=== PATIENT | female | born 1965 | race African-American/Black ===

== ENCOUNTER → 2023-08-30 11:29 | Outpatient (REF) | payer BC, SELFPAY ==
[2023-08-30 13:18] LABS: % Basophils 0.7 % (0-2); % Eosinophils 2.1 % (0-6); % Immature Granulocytes 0.2 % (0-0.5); % Lymphocytes 36.1 % (20.5-51.1); % Neutrophils 52.9 % (42.2-75.2); Absolute Eosinophils 0.1 10^3/uL (0-0.7); Absolute Lymphocytes 1.6 10^3/uL (1.2-3.4); Absolute Monocytes 0.4 10^3/uL (0.1-0.6); Absolute Neutrophils 2.3 10^3/uL (1.4-6.5); Hematocrit 39.3 % (37.0-47.0); Hemoglobin 12.8 g/dL (12.0-16.0); Mean Corp Hgb Conc. 32.6 g/dL (33.0-37.0); Mean Corpuscular Hgb 29.4 pg (27.0-31.0); Mean Corpuscular Volume 90.1 fL (81.0-99.0); Mean Platelet Volume 10.6 fL (7.4-10.4); Nucleated Red Blood Cells % 0 %; Platelet Count 243 10^3/uL (130-400); Red Blood Cell Count 4.36 10^6/uL (4.20-5.40); Red Cell Dist. Width 13.4 % (11.5-14.5); White Blood Cell Count 4.4 10^3/uL (4.8-10.8)
[2023-08-30 13:51] LABS: ALT (SGPT) 22 U/L (0-35); AST (SGOT) 24 U/L (14-36); Albumin 4.2 g/dl (3.5-5.0); Alkaline Phosphatase 69 U/L (38-126); Blood Urea Nitrogen 14 mg/dl (7-17); Calcium 9.9 mg/dl (8.4-10.2); Carbon Dioxide 29 mmol/L (22-30); Chloride 104 mmol/L (98-107); Glucose 83 mg/dl (70-99); HDL Cholesterol 95 mg/dl; LDL Cholesterol, Calculated 131 mg/dl; Potassium 3.9 mmol/L (3.5-5.1); Sodium 142 mmol/L (135-145); Total Bilirubin 0.6 mg/dl (0.2-1.3); Total Cholesterol 245 mg/dl (50-199); Total Protein 7.7 g/dl (6.3-8.2); Triglyceride 95 mg/dl (10-149); Very Low Density Lipoprotein 19 mg/dl (0-30); eGFR > 60.00
[2023-08-30 14:18] LABS: TSH Reflex To Free T4 0.18 uIU/ml (0.47-4.68)
[2023-08-30 14:48] LABS: Free T4 1.01 ng/dl (0.78-2.19)
== END ==
LOC: REG 11:29
PROVIDERS: ATTENDING PHYSICIAN Internal Medicine
DX: I10 Essential (primary) hypertension (principal)
CPT/HCPCS: 36415; 80053; 80061; 84439; 84443; 85025

== ENCOUNTER → 2023-09-02 16:54 | Outpatient (REF) | payer BC, SELFPAY | LOC: WDC 16:54 | PROVIDERS: ATTENDING PHYSICIAN Internal Medicine | DX: Z12.31 Encounter for screening mammogram for malignant neoplasm of breast (principal); Z12.39 Encounter for other screening for malignant neoplasm of breast | CPT/HCPCS: 77063; 77067 ==

== ENCOUNTER 2024-04-20 21:48 | Emergency (ER) | payer SELFPAY ==
[2024-04-20 21:49] VITALS: BP 148/94
[2024-04-20] MEDS: TYLENOL 1000 MG PO (22:03)
--- NOTE | 2024-04-21 00:42 | ED.GENMED ---
History of Present Illness
General
Chief Complaint: Back Pain
Source: patient
Exam Limitations: none
Time Seen by Provider: 04/21/24 00:27
Nursing documentation reviewed up to this point in time: agreed with
History of Present Illness
History of Present Illness:
58-year-old female presents to the emergency department after falling into the corner of a wall. She hit her back and complains of pain shooting down both of her legs. Pain is worse on the left side.
Past History
Past History
ED Past Medical History: HTN
ED Past Surgical History: Gynecological and Orthopedic
Patient has exhibited threatening behavior?: No
Social History
Tobacco: Non-smoker
Alcohol: Occasional
Drug: None
Review of Systems
Review of Systems
Allergies reviewed?: Yes
All Other Systems: Not applicable
Constitutional: Reports no symptoms
EENT: Reports no symptoms
Respiratory: Reports no symptoms
Cardiac: Reports no symptoms
ABD/GI: Reports no symptoms
: Reports no symptoms; Denies incontinence
Musculoskeletal: Reports back pain
Skin: Reports no symptoms
Neurological: Reports numbness
Endocrine: Reports no symptoms
Hematologic/Lymphatic: Reports no symptoms
Psychiatric: Reports no symptoms
Phy Exam
Physical Exam
Physical Exam:
Physical Exam
General: no apparent distress, not acutely ill
Neck: supple. no meningeal signs. normal posterior pharynx
Heart: equal radial pulses.
HEENT: EOMI
Lungs: no acute respiratory distress.
Abdomen: normal bowel sounds. not tender. no CVAT
Neuro: alert and oriented. no focal neurological deficits cranial nerves II through XII intact
Skin: no rash
Psychiatric: well kept. interactive and cooperative
Extremities: no edema. no calf tenderness. negative homans. good distal pulses
Course
Orders/Labs/Results
Orders:
Orders
04/20/24 21:58
Acetaminophen [Tylenol] 1,000 mg .ROUTE .STK-MED ONE
04/20/24 22:03
Acetaminophen [Tylenol] 1,000 mg PO NOW STA
04/20/24 22:06
CR Pelvis - 1 Or 2 Views Urgent
Comment:
Reason For Exam: fall/injury/pain
L-S Spine, 2 or 3 View [CR Lumbar Spine 2 Or 3 Views] Urgent
Comment:
Reason For Exam: fall/injury/pain
04/21/24 00:40
Ketorolac [Toradol] 15 mg IM NOW STA
Prednisone [Deltasone] 50 mg PO NOW STA
Vital Signs
Initial and Last Documented VS:
Initial Vital Signs
Temp Pulse Resp BP Pulse Ox
98.3 F 67 20 148/94 100
04/20/24 21:49 04/20/24 21:49 04/20/24 21:49 04/20/24 21:49 04/20/24 21:49
Last Documented Vital Signs
Temp Pulse Resp BP Pulse Ox
98.3 F 67 20 148/94 100
04/20/24 21:49 04/20/24 21:49 04/20/24 21:49 04/20/24 21:49 04/20/24 21:49
MDM/Problems Addressed
Differential Diagnosis Includes:
Vertebral fracture, radiculopathy
MDM/Problems Addressed:
58-year-old female with lumbar sprain and lumbar radiculopathy. No signs of cauda equina. Patient ambulates without difficulty. Stable for discharge. Follow-up with orthopedics and occupational health.
*Radiology
Radiology exam reviewed: preliminary read by ED provider (Pelvic x-ray no acute findings, lumbar x-ray no acute findings)
*Pulse Oximetry
Patient hypoxic: no
*Critical Care Note
Total Time (30-74mins, 75-104mins- exclusive of procedures): Not Applicable
Data Reviewed
Further Testing Considered But Not Given:
MRI not indicated
Patient Management
Social determinants of health affecting care: Living situation and Strong social support
Escalation/DeEscalation of care consider admission/obs:
Admission not indicated
ED Attending Note
-
Portions of this chart may have been created with voice recognition software.� Occasional wrong word or��sound alike� substitutions may have occurred due to the inherent limitations of voice recognition software.
Discharge Plan
Departure
Patient Disposition: Home (Routine Discharge)
Date of Disposition: 04/21/24
Time of Disposition: 00:43
Patient with high blood pressure during this ER visit?: Yes
Condition: Good
Discharge Problem:
Low back strain, Acute left lumbar radiculopathy
Instructions: Low Back Pain (DC), Radiculopathy (DC), BLOOD PRESSURE
Prescriptions:
New
gabapentin [Neurontin] 100 mg capsule
100 mg PO TID PRN (Reason: back pain) Qty: 60 0RF
Rx Instructions:
increase dose over 1 wk to 2 tabs/dose 3 x/day, then 3 tabs 3 x/day for 2nd wk for pain
prednisone 50 mg tablet
50 mg PO DAILY Qty: 5 0RF
No Action
nifedipine 30 mg tablet extended release
30 mg PO DAILY
Excedrin Migraine 250-250-65 mg Tablet
2 tab PO DAILYPRN PRN (Reason: HEADACHE)
prochlorperazine maleate 5 mg tablet
5 mg PO TIDPRN PRN (Reason: HEADACHE) Qty: 21 0RF
Referrals:
Miguel Angel Soto, DO [Non-Admitting Privileges] - Call in 1-3 days for appt
Stand Alone Forms: Return to Work
Interventions
Interventions:
*Risk Screen - Suicide Last Done: 04/20/24 21:49
*General Assessment Last Done: 10/14/24 21:49
*Neglect/Abuse Screening Last Done: 04/20/24 21:49
ED-Musculoskeletal Assessment Last Done: 04/20/24 23:50
Discharge Date and Time
Print Language: BOLIVIAN
[2024-04-21] MEDS: TORADOL 15 MG IM (01:00)
[2024-04-21] MEDS: DELTASONE 50 MG PO (01:00)
[2024-04-21 01:32] VITALS: BP 154/91
== END 2024-04-21 01:33 | disposition home or self-care (01) ==
LOC: EMR 21:48
PROVIDERS: EMERGENCY PHYSICIAN Emergency Medicine; FAMILY PHYSICIAN Internal Medicine
DX: S33.5XXA Sprain of ligaments of lumbar spine, initial encounter (principal); S39.012A Strain of muscle, fascia and tendon of lower back, initial encounter; W22.01XA Walked into wall, initial encounter; I10 Essential (primary) hypertension
CPT/HCPCS: 99283; 96372; 72100; 72170

== ENCOUNTER → 2024-05-03 08:05 | Outpatient (REF) | payer OTHER, SELFPAY | LOC: MRI 3T 08:05 | PROVIDERS: ATTENDING PHYSICIAN Pain Medicine Interventional Pain Medicine; FAMILY PHYSICIAN Internal Medicine | DX: M48.061 Spinal stenosis, lumbar region without neurogenic claudication (principal); M54.16 Radiculopathy, lumbar region; M43.16 Spondylolisthesis, lumbar region | CPT/HCPCS: 72148 ==